=== PATIENT | male | born 1965 | race Two or more races ===

== ENCOUNTER → 2025-05-04 13:31 | Outpatient (BNVA) | payer OTHER, SELFPAY | PROVIDERS: Visit Provider Physician Assistant Medical | DX: S60.352A Superficial foreign body of left thumb, initial encounter (principal); W45.8XXA Other foreign body or object entering through skin, initial encounter | CPT/HCPCS: 10120; 73140; 99203 ==

== ENCOUNTER → 2025-05-06 15:04 | Outpatient (BNVA) | payer OTHER, SELFPAY | PROVIDERS: Visit Provider Physician Assistant Medical | DX: S60.352A Superficial foreign body of left thumb, initial encounter (principal); W45.8XXA Other foreign body or object entering through skin, initial encounter; L03.012 Cellulitis of left finger | CPT/HCPCS: 99214 ==

== ENCOUNTER → 2025-05-09 15:28 | Outpatient (BNVA) | payer OTHER, SELFPAY | PROVIDERS: Visit Provider Physician Assistant Medical | DX: S60.352A Superficial foreign body of left thumb, initial encounter (principal); W45.8XXA Other foreign body or object entering through skin, initial encounter; Z02.79 Encounter for issue of other medical certificate | CPT/HCPCS: 99213 ==